=== PATIENT | male | born 1930 | race Caucasian/White ===

== ENCOUNTER → 2016-10-18 | Outpatient (CLI) | payer OTHER ==
[~2016-10-18] MED LIST: DIPH-437 PO; DONE5TAB9 PO; ENAL10TA88 PO; FINA5TAB PO; LORA-741 PO; METO-217 PO; SIMV20TA2 PO; SOTA80TA PO; SPIR25TA PO; TRAZ50TA35 PO
[2016-10-18 13:23] LABS: INR 1.5 (0.9-1.1); PROTHROMBIN TIME (PATIENT) 16.6 SECONDS (9.0-12.0)
[2016-10-18 13:42] LABS: BLOOD UREA NITROGEN 19 mg/dl (7-18); BUN/CREATININE RATIO 19.2 (10-20)
== END | disposition home or self-care (01) ==
LOC: C.LABMFLN 10:52
PROVIDERS: ATTEND Urology
DX: C65.1 Malignant neoplasm of right renal pelvis (principal); I48.0 Paroxysmal atrial fibrillation; R97.20 Elevated prostate specific antigen [PSA]

== ENCOUNTER → 2016-10-23 | Outpatient (CLI) | payer OTHER ==
[2016-10-23 18:20] LABS: ALKALINE PHOSPHATASE 97 U/L (45-117); ALT/SGPT 47 U/L (12-78); AST/SGOT 20 U/L (15-37)
== END | disposition home or self-care (01) ==
LOC: C.LABMFLN 14:27
PROVIDERS: ATTEND Family Medicine
DX: R74.8 Abnormal levels of other serum enzymes (principal)

== ENCOUNTER → 2016-11-05 | Outpatient (CLI) | payer OTHER ==
[~2016-11-05] MED LIST changes: +OPTIRAY 320 IV PRN
--- NOTE | 2016-11-05 10:24 | DIAGNOSTIC IMAGING REPORT ---
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 The patient was then scanned in a dynamic helical fashion during intravenous administration 120 cc of Optiray 320. Delayed images were also acquired through the abdomen and pelvis. A dose lowering technique was utilized adhering to the principles of ALARA. CT DOSE: 2420.03 mGycm FINDINGS: Lower chest: There is a hiatal hernia. Liver: There is a 13 mm left lobe hepatic cyst. Gallbladder: Unremarkable. Spleen: Normal in size and attenuation. Pancreas: Unremarkable. Adrenal glands: Unremarkable. Kidneys: There is a 3 cm right renal cyst. There is a 13 mm mid pole right renal hypodensity likely representing a slightly hyperdense cyst. There is a 1 cm posterior right renal cyst. No collecting system or ureteral masses are visualized. 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 The left ureters join immediately proximal to the left UVJ Bowel: There are no transition zones to indicate bowel obstruction. There is no evidence of acute appendicitis. There is no evidence of acute diverticulitis. Peritoneum: There is no intraperitoneal free air or abdominal ascites. There is a fat-containing left inguinal hernia Vasculature: The abdominal aorta is normal in course and caliber. Adenopathy: None. Pelvic viscera: The prostate is enlarged measuring 6.4 cm transversely. The bladder is decompressed. There is borderline bladder wall thickening. Skeletal structures: No destructive osseous lesions are seen. IMPRESSION: 1. No renal, ureteral, or bladder calculi identified 2. Right renal hypodense lesions, likely representing cysts and slightly hyperdense cysts 3. No collecting system or ureteral lesions identified 4. Dilated left renal collecting system 5. Enlarged prostate Electronically signed by: Ray Slade M.D. 11/05/2016 10:23 AM Dictated Date/Time: 11/05/2016 10:10 AM
== END | disposition home or self-care (01) ==
LOC: C.CTS 09:36
PROVIDERS: ATTEND Urology
DX: C67.9 Malignant neoplasm of bladder, unspecified (principal); C65.1 Malignant neoplasm of right renal pelvis; C68.9 Malignant neoplasm of urinary organ, unspecified; N40.0 Benign prostatic hyperplasia without lower urinary tract symptoms

== ENCOUNTER → 2017-07-10 | Outpatient (CLI) | payer OTHER ==
[~2017-07-10] MED LIST changes: -OPTIRAY 320 IV PRN
[2017-07-10 13:30] LABS: BLOOD UREA NITROGEN 18 mg/dl (7-18); CREATININE 0.95 mg/dl (0.60-1.40)
== END | disposition home or self-care (01) ==
LOC: C.LABMFLN 10:02
PROVIDERS: ATTEND Urology
DX: C67.9 Malignant neoplasm of bladder, unspecified (principal)

== ENCOUNTER → 2017-07-22 | Outpatient (CLI) | payer OTHER ==
[~2017-07-22] MED LIST changes: +OPTIRAY 320 IV PRN
--- NOTE | 2017-07-22 11:53 | DIAGNOSTIC IMAGING REPORT ---
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 A dose lowering technique was utilized adhering to the principles of ALARA. COMPARISON STUDY: 11/05/2016 FINDINGS: Mild basilar interstitial prominence. Small hepatic cyst unchanged in the prior study. Liver enhances uniformly. Kidneys negative for hydronephrosis. There are several right renal cysts unchanged from the prior exam. The adrenal glands are normal. Moderate fatty replacement of the pancreas with no evidence for significant space-occupying lesion. The bowel pattern overall is nonobstructive. Rather extensive chronic colonic diverticulosis. No evidence for acute diverticulitis. Probable nonobstructing adhesion right anterior abdominal wall transaxial image 67. The prostate is enlarged. This is unchanged in the prior exam. Moderate bladder wall thickening in a somewhat contracted bladder. This is also unchanged. No significant abdominal pelvic or inguinal adenopathy. Atherosclerotic change of the abdominal and pelvic arterial vasculature. Degenerative changes of the osseous structures are unaltered. IMPRESSION: 1. Several stable hepatic as well as right renal cysts. 2. Prostatic enlargement unchanged in the prior exam. 3. Moderate bladder wall thickening also unchanged. 4. Colonic diverticulosis with no evidence for acute diverticulitis. 5. This study is stable compared to the prior exam. The above report was generated using voice recognition software. It may contain grammatical, syntax or spelling errors. Electronically signed by: John Hooks M.D. 07/22/2017 11:52 AM Dictated Date/Time: 07/22/2017 11:42 AM
== END | disposition home or self-care (01) ==
LOC: C.CTS 11:13
PROVIDERS: ATTEND Urology
DX: C67.9 Malignant neoplasm of bladder, unspecified (principal)

== ENCOUNTER → 2017-10-24 | Outpatient (CLI) | payer OTHER ==
[~2017-10-24] MED LIST changes: -OPTIRAY 320 IV PRN
== END | disposition home or self-care (01) ==
LOC: C.LABMFLN 08:38
PROVIDERS: ATTEND Physician Assistant
DX: R19.7 Diarrhea, unspecified (principal); R10.84 Generalized abdominal pain

== ENCOUNTER → 2017-11-12 | Outpatient (CLI) | payer OTHER | END | disposition home or self-care (01) | LOC: C.LABMFLN 11:13 | PROVIDERS: ATTEND Urology | DX: R33.9 Retention of urine, unspecified (principal) ==